=== PATIENT | male | born 1990 | race Two or more races ===

== ENCOUNTER 2022-12-31 18:50 | Inpatient (IN) | payer OTHER ==
[~2022-12-31] VITALS: Ht 165.1 cm; Wt 70.0 kg
[2022-12-31 19:57] LABS: BASOPHILS % (AUTO) 0.7 % (0.0-2.0); EOSINOPHILS % (AUTO) 1.1 % (1.0-6.0); HEMATOCRIT 40.4 % (41-53); HEMOGLOBIN 13.7 g/dL (13.5-17.5); LYMPHOCYTES # (AUTO) 2.3 K/uL (1.0-4.8); LYMPHOCYTES % (AUTO) 19.3 % (22.0-44.0); MEAN CORPUSCULAR HEMOGLOBIN 31.4 pg (26.0-34.0); MEAN CORPUSCULAR HGB CONC 33.8 G/dL (31.0-37.0); MEAN CORPUSCULAR VOLUME 93 fL (80-100); MONOCYTES % (AUTO) 8.3 % (2.0-9.0); NEUTROPHILS # (AUTO) 8.3 K/uL (1.8-7.7); NEUTROPHILS % (AUTO) 70.6 % (40.0-70.0); PLATELET COUNT (AUTO) 248 K/uL (150-450); RED BLOOD CELL COUNT(AUTO) 4.35 MIL/uL (4.50-5.90); RED CELL DISTRIBUTION WIDTH 13.1 % (11.5-14.5); WHITE BLOOD COUNT (AUTO) 11.8 K/uL (4.5-11.0)
[2022-12-31 20:11] LABS: ANION GAP 9 mmol/L (8-16); CARBON DIOXIDE 29 mmol/L (22-29); CHLORIDE 98 mmol/L (98-107); POTASSIUM 4.1 mmol/L (3.5-5.1); SODIUM SERUM 136 mmol/L (136-145); UREA NITROGEN, BLOOD 9 mg/dL (7-18)
[2022-12-31 20:14] LABS: ALCOHOL, BLOOD (SERUM) < 3 mg/dL (0-10)
[2022-12-31 20:24] LABS: CREATININE 0.83 mg/dL (0.60-1.30); GLUCOSE,RANDOM 103 mg/dL (70-110)
[2022-12-31 20:25] LABS: ALANINE AMINOTRANSFERASE 29 U/L (12-78); ALBUMIN 3.5 g/dL (3.4-5.0); ALKALINE PHOSPHATASE 132 U/L (46-116); BILIRUBIN,TOTAL 0.3 mg/dL (0.1-1.0); CALCIUM, TOTAL 9.6 mg/dL (8.8-10.5); GLOMERULAR FILTR. RATE CALC > 60 mL/min (>60)
[2022-12-31 20:37] LABS: ASPARTATE AMINOTRANSFERASE 14 U/L (15-37)
[2022-12-31] MEDS ORDERED: ACETAMINOPHEN 325 MG TABLET PO PRN (22:30)
[2022-12-31] MEDS ORDERED: ONDANSETRON HCL 4 MG/2 ML VIAL IVP PRN (22:30)
[2022-12-31 22:48] LABS: COVID AG,FIA SOURCE NASAL SWAB
[2022-12-31 22:55] LABS: PH,URINE DRUG SCREEN 5.5 (5.0-8.0)
[2022-12-31 23:00] LABS: AMPHET/METH SCREEN,URINE NEGATIVE (NEGATIVE); BARBITURATE SCREEN, URINE NEGATIVE (NEGATIVE); BENZODIAZEPINES SCREEN,URINE NEGATIVE (NEGATIVE); CANNABINOID SCREEN,URINE NEGATIVE (NEGATIVE); COCAINE SCREEN,URINE NEGATIVE (NEGATIVE); METHADONE SCREEN, URINE NEGATIVE (NEGATIVE); OPIATE SCREEN,URINE NEGATIVE (NEGATIVE); PHENCYCLIDINE SCREEN,URINE NEGATIVE (NEGATIVE)
[2022-12-31] MEDS ORDERED: LORazepam 0.5 MG TABLET PO PRN (23:00)
[2022-12-31 23:03] LABS: SARS-COV2 (COVID) ANTIGEN,FIA Negative (Negative)
[2022-12-31 23:06] LABS: ALCOHOL, URINE DRUG SCREEN NEGATIVE (NEGATIVE)
[2023-01-01 00:36] VITALS: BP 113/72; PULSE 73; RESP 18; TEMP 98.3
[2023-01-01 05:21] VITALS: BP 115/66; PULSE 70; RESP 18; TEMP 98.2
[2023-01-01 07:25] LABS: BASOPHILS % (AUTO) 0.3 % (0.0-2.0); EOSINOPHILS % (AUTO) 1.4 % (1.0-6.0); HEMATOCRIT 39.1 % (41-53); HEMOGLOBIN 13.3 g/dL (13.5-17.5); LYMPHOCYTES # (AUTO) 1.8 K/uL (1.0-4.8); LYMPHOCYTES % (AUTO) 21.2 % (22.0-44.0); MEAN CORPUSCULAR HEMOGLOBIN 31.4 pg (26.0-34.0); MEAN CORPUSCULAR VOLUME 92 fL (80-100); MONOCYTES # (AUTO) 0.8 K/uL (0.1-1.0); MONOCYTES % (AUTO) 9.5 % (2.0-9.0); NEUTROPHILS # (AUTO) 5.8 K/uL (1.8-7.7); NEUTROPHILS % (AUTO) 67.6 % (40.0-70.0); PLATELET COUNT (AUTO) 245 K/uL (150-450); RED BLOOD CELL COUNT(AUTO) 4.23 MIL/uL (4.50-5.90); WHITE BLOOD COUNT (AUTO) 8.6 K/uL (4.5-11.0)
[2023-01-01 07:56] LABS: ANION GAP 6 mmol/L (8-16); CALCIUM, TOTAL 8.7 mg/dL (8.8-10.5); CARBON DIOXIDE 30 mmol/L (22-29); CHLORIDE 102 mmol/L (98-107); CREATININE 0.98 mg/dL (0.60-1.30); GLOMERULAR FILTR. RATE CALC > 60 mL/min (>60); GLUCOSE,RANDOM 91 mg/dL (70-110); SODIUM SERUM 138 mmol/L (136-145); UREA NITROGEN, BLOOD 10 mg/dL (7-18)
[2023-01-01 08:09] VITALS: BP 125/76; PULSE 80; RESP 19; TEMP 98.3
[2023-01-01] MEDS: MULTIVITAMINS, THERAPEUTIC TABLET PO SCH ×3 (08:57→20:39)
[2023-01-01 19:41] VITALS: BP 130/78; PULSE 91; RESP 18; TEMP 97.8
[2023-01-01] MEDS: OLANZapine 5 MG RAPDIS TABLET PO SCH ×2 (20:32→20:39)
[2023-01-02 04:10] VITALS: BP 117/76; PULSE 83; RESP 20; TEMP 97.9
[2023-01-02 08:03] VITALS: BP 121/71; PULSE 93; RESP 18; TEMP 98.4
[2023-01-02] MEDS: MULTIVITAMINS, THERAPEUTIC TABLET PO SCH ×2 (08:22→20:49)
[2023-01-02] MEDS: OLANZapine 5 MG RAPDIS TABLET PO SCH ×2 (08:22→20:49)
[2023-01-02 20:09] VITALS: BP 130/87; PULSE 71; RESP 20; TEMP 97.4
[2023-01-03 05:13] VITALS: BP 110/76; PULSE 71; RESP 18; TEMP 97.9
[2023-01-03 08:30] VITALS: BP 116/78; PULSE 75; RESP 18; TEMP 97.9
[2023-01-03] MEDS: MULTIVITAMINS, THERAPEUTIC TABLET PO SCH ×2 (08:41→20:18)
[2023-01-03] MEDS: OLANZapine 5 MG RAPDIS TABLET PO SCH ×2 (08:41→20:18)
[2023-01-03 19:43] VITALS: BP 120/80; PULSE 76; RESP 18; TEMP 97.7
[2023-01-04 04:29] VITALS: BP 122/83; PULSE 82; RESP 18; TEMP 98.4
[2023-01-04 08:06] VITALS: BP 117/73; PULSE 69; RESP 19; TEMP 97.9
[2023-01-04] MEDS: OLANZapine 5 MG RAPDIS TABLET PO SCH ×2 (09:00→19:58)
[2023-01-04] MEDS: MULTIVITAMINS, THERAPEUTIC TABLET PO SCH ×2 (09:00→19:58)
[2023-01-04 19:24] VITALS: BP 114/64; PULSE 80; RESP 18; TEMP 98.5
[2023-01-05 04:52] VITALS: BP 116/71; PULSE 79; RESP 20; TEMP 98.3
[2023-01-05] MEDS: OLANZapine 5 MG RAPDIS TABLET PO SCH ×2 (07:56→21:01)
[2023-01-05] MEDS: MULTIVITAMINS, THERAPEUTIC TABLET PO SCH ×2 (07:56→21:01)
[2023-01-05 20:10] VITALS: BP 115/66; PULSE 87; RESP 18; TEMP 98.5
[2023-01-06 04:34] VITALS: BP 109/64; PULSE 70; RESP 18; TEMP 97.9
[2023-01-06] MEDS: MULTIVITAMINS, THERAPEUTIC TABLET PO SCH ×2 (08:01→21:07)
[2023-01-06] MEDS: OLANZapine 5 MG RAPDIS TABLET PO SCH ×2 (08:02→21:07)
[2023-01-06 08:06] VITALS: BP 112/68; PULSE 72; RESP 18; TEMP 97.8
[2023-01-06 15:28] VITALS: BP 118/70; PULSE 76; RESP 20; TEMP 98.2
[2023-01-06 20:09] VITALS: BP 114/66; PULSE 75; RESP 20; TEMP 98.2
[2023-01-07 04:45] VITALS: BP_SYST 104; BP_SYST 109; BP_DIAS 60; BP_DIAS 71; PULSE 59; PULSE 62; RESP 18; TEMP 98.2
[2023-01-07 08:24] VITALS: BP 109/70; PULSE 67; RESP 18; TEMP 98.4
[2023-01-07] MEDS: OLANZapine 5 MG RAPDIS TABLET PO SCH ×2 (08:29→21:44)
[2023-01-07] MEDS: MULTIVITAMINS, THERAPEUTIC TABLET PO SCH ×2 (08:29→21:44)
[2023-01-07 20:28] VITALS: BP 103/63; PULSE 77; RESP 18; TEMP 98
[2023-01-08 04:58] VITALS: BP 103/70; PULSE 61; RESP 18; TEMP 97.8
[2023-01-08 07:30] VITALS: BP 110/65; PULSE 60; RESP 20; TEMP 98.2
[2023-01-08] MEDS: MULTIVITAMINS, THERAPEUTIC TABLET PO SCH ×2 (08:43→20:51)
[2023-01-08] MEDS: OLANZapine 5 MG RAPDIS TABLET PO SCH ×2 (08:43→20:51)
[2023-01-08] MEDS ORDERED: MULT-1203 PO (14:30)
[2023-01-08] MEDS ORDERED: OLAN5TAB52 PO (14:31)
[2023-01-08 15:09] VITALS: BP 106/63; PULSE 73; RESP 18; TEMP 97.6
[2023-01-08 20:11] VITALS: BP 111/58; PULSE 77; RESP 18; TEMP 98.2
== END 2023-01-08 23:10 | DRG 885 ==
LOC: EMS 18:54 → 6S 22:00
PROVIDERS: ADMIT Internal Medicine; ATTEND Internal Medicine
DX: F20.0 Paranoid schizophrenia (principal); R45.851 Suicidal ideations; F10.139 Alcohol abuse with withdrawal, unspecified; R74.8 Abnormal levels of other serum enzymes; Y90.0 Blood alcohol level of less than 20 mg/100 ml; Z20.822 Contact with and (suspected) exposure to COVID-19; F94.0 Selective mutism
CPT/HCPCS: 80048; 80053; 80307; 83735; 85025; 99285; G0480